=== PATIENT | male | born 1995 | race Caucasian/White ===

== ENCOUNTER 2020-11-27 10:39 | Emergency (ER) | payer BC, SELFPAY ==
[2020-11-27 11:59] VITALS: BP 128/92; PULSE 98; RESP 18; TEMP 37.3; O2SAT 98; BMI 20.5
--- NOTE | 2020-11-27 12:14 | HMH.EDUTC ---
[facility] [place] Clinical Impression: Exposure to COVID-19 virus, Strep throat Otitis media Qualifiers: Otitis media type: suppurative Chronicity: acute Laterality: bilateral Recurrence: non-recurrent Spontaneous tympanic membrane rupture: without spontaneous rupture Qualified Code(s): H66.003 - Acute suppurative otitis media without spontaneous rupture of ear drum, bilateral Disposition: Home, Self-Care Condition on Discharge: Good Instructions: Middle Ear Infection, DI for COVID-19 (Suspected or Confirmed ), Preventing the Spread of Coronavirus Discharge Instructions Additional Instructions: Drink plenty of fluids. Take tylenol for pain or fever. Return if you begin to have difficulty breathing. Follow up with your regular doctor. GO TO THE ER FOR ANY WORSENING SYMPTOMS Quarantine until you know the results of your covid-19 test. If it is positive, the health department should call you and give you further instructions about your length of Quarantine and other thing. Prescriptions: Brompheniramine/Pseudoephed/Dm [Bromfed Dm Cough Syrup] 5 ml PO Q6HP PRN #240 syrup PRN Reason: Cough Transmission Status: Received by [facility] Amoxicillin [Amoxicillin 500mg Tab] 500 mg PO TID 10 Days #30 tab Transmission Status: Received by [facility] predniSONE [Deltasone 10mg tablet] 10 mg PO BID 3 Days #6 tab Transmission Status: Received by [facility] Referrals: Provider,Referral, MD [Primary Care Provider] - Time of Disposition: 12:29 Medical Decision Making - Medical Records Medical records reviewed: No: I reviewed the patient's medical records. - Alberto Inquiry Pt receiving controlled substance: No Vital Signs: 11/27/20 11:59 11/27/20 12:29 Temperature 99.2 F 99.3 F Temperature Source Oral Pulse Rate 99 H Pulse Rate [Left] 98 H Respiratory Rate 18 18 Blood Pressure 124/87 Blood Pressure [Right Arm] 128/92 H Blood Pressure Mean [Right Arm] 104 02 Sat by Pulse Oximetry 98 - Lab Data Lab results reviewed: Yes: I reviewed the patient's lab results. Lab Results 11/27/20 12:29: Strep Scn Rapid Clinic Positive [facility] [place] - General Stated complaint: bilateral ear pain Time Seen by Provider: 11/27/20 12:14 Mode of Arrival: Ambulatory Source of Information: Patient Limitations: No Limitations Description of Symptoms (Recalled from Triage Doc. by RN): pt c/o of bilateral ear pain and popping (L is worse) and a fever HEENT Symptoms (Recalled from RN notes): Yes (bilateral ear pain and popping) Resp Symptoms (Recalled from RN notes): No Skin Symptoms (Recalled from RN notes): No MS Symptoms (Recalled from RN notes): No Functional Status (Recalled from RN notes): febrile - History of Present Illness Provider Complaint: He c/o bilateral ear pain for the past week. He denies fever/chills/body aches. His dad does currently have covid-19. He lives with his parents. He denies any shortness of breath. - Related Data Previous Rx's Medication Instructions Recorded Amoxicillin [Amoxicillin 500mg Tab] 500 mg PO TID 10 Days #30 tab 11/27/20 Brompheniramine/Pseudoephed/Dm 5 ml PO Q6HP PRN #240 syrup 11/27/20 [Bromfed Dm Cough Syrup] predniSONE [Deltasone 10mg tablet] 10 mg PO BID 3 Days #6 tab 11/27/20 Allergies Allergy/AdvReac Type Severity Reaction Status Date / Time No Known Allergies Allergy Verified 11/27/20 12:08 - Worker's Comp Is this a Worker's Comp case?: No [facility] History - Hepatitis A Screen Drug use history?: No High risk sexual behaviors?: No History of sexually transmitted infection?: No Currently employed?: No Childcare worker?: No Do you have indoor plumbing?: Yes Do you have electricity?: Yes Attestation statement:: This patient has been screened for Hepatitis A risk factors. I have reviewed the patient's past medical history: Yes ROS Obtained: Yes All systems reviewed & no additional complaints - [place]
[2020-11-27 12:29] VITALS: BP 124/87; PULSE 99; RESP 18; TEMP 37.4
[2020-11-27 12:31] LABS: UTC Strep Screen (Rapid) Positive (Negative)
--- NOTE | 2020-11-27 16:53 | PC.NURSE ---
attempted to contact pt r/t test results, voicemail left for pt asking for return call
--- NOTE | 2020-11-28 14:24 | PC.NURSE ---
notified pt of positive covid test at this time
== END 2020-11-27 12:40 | disposition home or self-care (01) ==
PROVIDERS: Emergency Provider Nurse Practitioner Family
DX: U07.1 COVID-19 (principal); H66.003 Acute suppurative otitis media without spontaneous rupture of ear drum, bilateral; J02.0 Streptococcal pharyngitis
CPT/HCPCS: 87880; 99203; G0463; U0003

== ENCOUNTER 2020-12-11 16:15 | Emergency (ER) | payer BC, SELFPAY ==
[2020-12-11 16:56] VITALS: PULSE 69; RESP 18; TEMP 37.1; O2SAT 97; BMI 20.2
--- NOTE | 2020-12-11 17:39 | HMH.EDUTC ---
[facility] [place] Clinical Impression: Serous otitis media Qualifiers: Chronicity: acute Laterality: bilateral Recurrence: non-recurrent Qualified Code(s): H65.03 - Acute serous otitis media, bilateral Ear pain Qualifiers: Laterality: right Qualified Code(s): H92.01 - Otalgia, right ear Disposition: Home, Self-Care Condition on Discharge: Good Instructions: Middle Ear Infection Additional Instructions: Use the medications as directed. Follow up with the ear nose and throat doctor. I put in a referral to Dr. Vincent. Please call his office and get an appointment. Once we have tried once with medications it is usually time to go see a specialist if you're not getting better. Take the prescribed medications in the mean time until you are seen by ENT. Follow up with your regular doctor. GO TO THE ER FOR ANY WORSENING SYMPTOMS OR CONCERNS Prescriptions: Ibuprofen [Ibuprofen 600mg Tablet] 600 mg PO Q6HP PRN #30 tab PRN Reason: Mild Pain Transmission Status: Received by [facility] Pseudoephedrine HCl 30 mg PO Q6HP PRN #30 tab PRN Reason: Congestion Transmission Status: Received by [facility] Fluticasone Propionate [Flonase 50mcg nasal spray 16gm] 1 spr NS DAILY 30 Days #1 each Transmission Status: Received by [facility] Cetirizine HCl [Zyrtec] 10 mg PO DAILY 30 Days #30 cap Transmission Status: Received by [facility] Referrals: ProviderMax MD [Primary Care Provider] - Beck Vincent MD [Staff Physician] - Forms: Work/School Release Time of Disposition: 17:52 Medical Decision Making - Medical Records Medical records reviewed: No: I reviewed the patient's medical records. - Alberto Inquiry Pt receiving controlled substance: No Vital Signs: 12/11/20 16:56 12/11/20 18:07 Temperature 98.7 F 98.7 F Temperature Source Oral Pulse Rate 69 Pulse Rate [Left] 69 Respiratory Rate 18 18 Blood Pressure 147/87 H 02 Sat by Pulse Oximetry 97 Oxygen Delivery Method Room Air [facility] [place] - General Stated complaint: ear pain Time Seen by Provider: 12/11/20 17:39 Mode of Arrival: Ambulatory Source of Information: Patient Limitations: No Limitations Description of Symptoms (Recalled from Triage Doc. by RN): PT WAS HERE TWO WEEKS AGO FOR AN EAR INFECTION. PT IS STILL C/O BILATERAL EAR ACHES HEENT Symptoms (Recalled from RN notes): Yes (BILATERAL EAR ACHES) Resp Symptoms (Recalled from RN notes): No Skin Symptoms (Recalled from RN notes): No MS Symptoms (Recalled from RN notes): No Functional Status (Recalled from RN notes): NA - History of Present Illness Provider Complaint: He is back with complaints of bilateral ear pain and pressure. He states that his left is worse than his right. He was here with similar symptoms a couple of weeks ago. He states that he did not get much better with the prescribed medications, but his sore throat did get better. - Related Data Previous Rx's Medication Instructions Recorded Amoxicillin [Amoxicillin 500mg Tab] 500 mg PO TID 10 Days #30 tab 11/27/20 Brompheniramine/Pseudoephed/Dm 5 ml PO Q6HP PRN #240 syrup 11/27/20 [Bromfed Dm Cough Syrup] predniSONE [Deltasone 10mg tablet] 10 mg PO BID 3 Days #6 tab 11/27/20 Azithromycin [Z-Rip 250mg Tab*] 250 mg PO UD DOSE PK #6 tab 12/06/20 Cetirizine HCl [Zyrtec] 10 mg PO DAILY 30 Days #30 cap 12/11/20 Fluticasone Propionate [Flonase 1 spr NS DAILY 30 Days #1 each 12/11/20 50mcg nasal spray 16gm] Ibuprofen [Ibuprofen 600mg 600 mg PO Q6HP PRN #30 tab 12/11/20 Tablet] Pseudoephedrine HCl 30 mg PO Q6HP PRN #30 tab 12/11/20 Allergies Allergy/AdvReac Type Severity Reaction Status Date / Time No Known Allergies Allergy Verified 11/27/20 12:08 - Worker's Comp Is this a Worker's Comp case?: No [facility] History - Hepatitis A Screen Drug use history?: No High risk sexual behaviors?: No History of sexually transmitted infection?: No Currently empl
[2020-12-11 18:07] VITALS: BP 147/87; PULSE 69; RESP 18; TEMP 37.1
== END 2020-12-11 18:07 | disposition home or self-care (01) ==
PROVIDERS: Emergency Provider Nurse Practitioner Family
DX: H65.03 Acute serous otitis media, bilateral (principal)
CPT/HCPCS: 99202; G0463

== ENCOUNTER 2022-07-12 08:16 | Emergency (ER) | payer BC, SELFPAY ==
[2022-07-12 08:20] VITALS: BP 152/77; PULSE 88; RESP 20; TEMP 36.9; O2SAT 97; BMI 21.6
--- NOTE | 2022-07-12 08:36 | EXP.UTC ---
Discharge Plan Disposition Patient Disposition: Home, Self-Care Condition: Good Prescriptions Prescriptions: New amoxicillin-pot clavulanate 875-125 mg Tablet 1 tab PO Q12H Qty: 20 0RF fluticasone propionate [Flonase Allergy Relief] 50 mcg/actuation spray,suspension 1 spray intranasal DAILY Qty: 16 0RF Rx Instructions: administer into each nostril daily Referrals Follow up/Referrals: Jacklyn Villareal PA [Primary Care Provider] - See instructions Activity Restrictions/Add. Instructions Additional Instructions/Restrictions: *Monitor Temp, Over the counter Motrin or Tylenol as directed/as needed Tylenol every 4 hours and Motrin every 6 hours (as long as your family doctor has told you that you can take it) for fever or pain. and straight to ER if unable to lower temp less than 101.0 after medication given *Warm salt water gargles may help to soothe the throat *Throat Lozenges? *Warm fluids like tea with honey may help to soothe the throat? *Sleep elevated *Humidifier/Vaporizer *Flonase 2 sprays in each nostril daily but be aware that it may take 2-3 days before you notice improvement Your throat swab was sent for culture. Those results are typically sent to your primary care. Be sure to follow up in 2-3 days with your family doctor/primary care physician if no improvement so they can review those result and treat if necessary. If you don?t have a primary care doctor, I recommend you get one but in the mean time, you will have to return to a walk in clinic Follow up IMMEDIATELY for new or worsening symptoms or no Noticeable improvement over the next 48-72 hours. 911 for difficulty breathing or swallowing Stop the Amoxicillin and start the Augmentin make sure to take a Probiotic this medication may upset your stomach Clinical Impressions Clinical Impression: Otitis media Instructions Patient Instructions: Middle Ear Infection, Middle Ear Infections (Alternative Therapy) Discharge ED Provider: Lara Amaya [facility] [place] General Stated complaint: bilateral ear pain Mode of Arrival: Ambulatory Source of Information: Patient and Parent(s) Limitations: No Limitations Time Seen by Provider: 07/12/22 08:36 Description of Symptoms (Recalled from Triage Doc. by RN): PATIENT STATES HE STARTED AN ANTIBIOTIC APPROX 1 WEEK AGO FOR STREP. HE C/O SORE THROAT THIS MORNING AND BILATERAL EAR PAIN HEENT Symptoms (Recalled from RN notes): Yes Resp Symptoms (Recalled from RN notes): No Skin Symptoms (Recalled from RN notes): No MS Symptoms (Recalled from RN notes): No Functional Status (Recalled from RN notes): WNL History of Present Illness Provider Complaint: Patient states that he was started on Amoxicillin one week ago for strep throat and redness in his ears States that he throat was doing a little better still having a little pain this morning but his left ear is hurting worse States that he has done this before and had to come back and get a stronger antibiotic to clear his ears Related Data Previous Rx's Medication Instructions Recorded amoxicillin 875 mg-potassium 1 tab PO Q12H #20 tabs 07/12/22 clavulanate 125 mg tablet fluticasone propionate 50 1 spray intranasal DAILY #16 grams 07/12/22 mcg/actuation nasal spray,suspension (Flonase Allergy Relief) Allergies Allergy/AdvReac Type Severity Reaction Status Date / Time No Known Allergies Allergy Verified 12/19/20 11:19 Worker's Comp Is this a Worker's Comp case?: No PFSH PFS Disclaimer: The information contained in this section may have been updated after the patient was seen, as this information can be updated by other users. Social History Smoking Status: Never smoker alcohol intake: never substance use type: denies use current occupational status: employed Travel in the last 8 weeks: None ROS Obtained: Yes All systems reviewed & no additional complaints except as documented and Yes Systems reviewe
[2022-07-12 08:45] LABS: UTC Strep Screen (Rapid) Negative (Negative)
[2022-07-12 08:46] VITALS: BP 152/77; PULSE 88; RESP 20; TEMP 36.9; O2SAT 97
== END 2022-07-12 08:49 | disposition home or self-care (01) ==
PROVIDERS: Emergency Provider Nurse Practitioner; PCP Physician Assistant
DX: H66.92 Otitis media, unspecified, left ear (principal)
CPT/HCPCS: 87880; 99212; 99214; G0463